=== PATIENT | female | born 1990 | race Caucasian/White ===

== ENCOUNTER → 2017-02-18 | Outpatient (CLI) | payer MEDICAID | END | disposition home or self-care (01) | LOC: MW.CHOBGYN 11:19 | PROVIDERS: ATTEND Obstetrics & Gynecology | DX: Z34.90 Encounter for supervision of normal pregnancy, unspecified, unspecified trimester (principal) | CPT/HCPCS: 36415; 81003; 82950; 85027 ==

== ENCOUNTER 2017-04-25 07:35 | Inpatient (IN) | payer MEDICAID ==
[~2017-04-25 07:35] MED LIST: Lactated Ringers 1,000 ML IV SCH; Sodium Chloride 0.9% 10 ML Syringe FLUSH PRN; Sodium Chloride 0.9% 2.5 ML Syringe FLUSH PRN
[2017-04-25] MEDS: Lactated Ringers 1,000 ML IV SCH ×3 (08:30→10:23)
[2017-04-25] MEDS ORDERED: ceFAZolin 2 GM in Premix Bag 1 BAG IV ONE (08:41)
[2017-04-25] MEDS ORDERED: Sodium Chloride 0.9% 2.5 ML Syringe FLUSH PRN (08:41)
[2017-04-25] MEDS ORDERED: Sodium Chloride 0.9% 10 ML Syringe FLUSH PRN (08:41)
[2017-04-25] MEDS ORDERED: Citric Acid/Sodium Citrate Solution 30 ML Cup PO SCH (08:45)
--- NOTE | 2017-04-25 08:53 | PCM.LDHP ---
L&D History of Present Illness - General Date of Service: 04/25/17 Admit Problem/Dx: Patient Status Order with Admit Dx/Problem 04/25/17 08:41 Patient Status [ADT] Routine Admission Diagnosis/Problem Admission Diagnosis/Problem Source of Information: Patient History Limitations: Reports: No Limitations - History of Present Illness Improves with: Reports: None Worsens with: Reports: None Associated Symptoms: Reports: N - Related Data Allergies/Adverse Reactions: Allergies Allergy/AdvReac Type Severity Reaction Status Date / Time No Known Allergies Allergy Verified 07/18/15 15:48 Home Medications: Home Meds . [No Known Home Meds] 04/22/17 [History] Past Medical History Other Cardiovascular History: History of Tachycardia and high blood pressure in other "none in this ", treated by Dr. 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 - Past Surgical History Head Surgeries/Procedures: Reports: None Female Surgical History: Reports: Section Other Female Surgeries/Procedures: laparotomy with ovarian cyst removal and partial oophorectomy Social & Family History - Family History Family Medical History: Noncontributory - Tobacco Use Smoking Status *Q: Current Every Day Smoker Years of Tobacco use: 8 Packs/Tins Daily: 0.5 Second Hand Smoke Exposure: Yes - Alcohol Use Days Per Week of Alcohol Use: 0 - Recreational Drug Use Recreational Drug Use: No Drug Use in Last 12 Months: No H&P Review of Systems - Review of Systems: Review Of Systems: See Below General: Reports: No Symptoms HEENT: Reports: No Symptoms Pulmonary: Reports: No Symptoms Cardiovascular: Reports: No Symptoms Gastrointestinal: Reports: No Symptoms Genitourinary: Reports: No Symptoms Musculoskeletal: Reports: No Symptoms Skin: Reports: No Symptoms Psychiatric: Reports: No Symptoms Neurological: Reports: No Symptoms Hematologic/Lymphatic: Reports: No Symptoms Immunologic: Reports: No Symptoms L&D Exam - Exam Exam: See Below - Vital Signs Weight: 78.471 kg - OB Specific Fundal Height In cm: 37 Contraction Intensity: Mild Movement: Active Heart Tones: Present Presentation: Vertex - Angulo Score Angulo Score Cervix Position: Posterior Angulo Score Consistency: Firm Angulo Score Effacement: 0-30% Angulo Score Dilation: Closed Angulo Score Infant's Station: -3 Angulo Score Total: 0 Problem List Initiated/Reviewed/Updated: Yes Orders Last 24hrs: Active Orders 24 hr Category Date Time Status Patient Status [ADT] Routine ADT 04/25/17 08:41 Active Non Stress Test [RC] PER UNIT ROUTINE Care 04/25/17 08:41 Active Notify Provider Vital Signs [RC] PRN Care 04/25/17 08:43 Active Procedure Site Prep Instruct [RC] ASDIRECTED Care 04/25/17 08:41 Active Up ad Tita [RC] ASDIRECTED Care 04/25/17 08:41 Active Verify Patient Consent Obtain [RC] ASDIRECTED Care 04/25/17 07:12 Active Verify Patient Consent Obtain [RC] ASDIRECTED Care 04/25/17 08:41 Active Vital Signs [RC] PER UNIT ROUTINE Care 04/25/17 08:41 Active CBC W/O DIFF,HEMOGRAM [HEME] Routine Lab 04/25/17 08:41 Ordered TYPE AND SCREEN [BBK] Routine Lab 04/25/17 08:41 Ordered Citric Acid/Sodium Citrate [Bicitra Solution] Med 04/25/17 08:45 Active 30 ml PO .ONCE Lactated Ringers [Ringers, Lactated] 1,000 ml Med 04/25/17 08:45 Active IV .BOLUS Lactated Ringers [Ringers, Lactated] 1,000 ml Med 04/25/17 07:15 Active IV ASDIRECTED Sodium Chloride 0.9% [Saline Flush] Med 04/25/17 07:12 Active 10 ml FLUSH ASDIRECTED PRN Sodium Chloride 0.9% [Saline Flush] Med 04/25/17 08:41 Active 10 ml FLUSH ASDIRECTED PRN Sodium Chloride 0.9% [Saline Flush] Med 04/25/17 07:12 Active 2.5 ml FLUSH ASDIRECTED PRN Sodium Chloride 0.9% [Saline Flush] Med 04/25/17 08:41 Active 2.5 ml FLUSH ASDIRECTED PRN ceFAZolin [Ancef] 2 gm Med 04/25/17 08:41 Active Premix Bag 1 bag IV ONETIME Medication Administration Instruction [OM.PC] Routine Oth 04/25/17 07:12 Ordered Peripheral IV Insertion Adult [OM.PC] Routine Oth 04/25/17 07:12 Ordered Peripheral IV Insertion Adult [OM.PC] Routine Oth 04/25/17 08:41 Ordered Schedule Procedure [COMM] Per Unit Routine Oth 04/25/17 08:41 Ordered Resuscitation Status Routine Resus Stat 04/25/17 08:41 Ordered Medication Orders Citric Acid/Sodium Citrate (Bicitra Solution) 30 ml PO .ONCE STEF Lactated Ringer's (Ringers, Lactated) 1,000 mls @ 125 mls/hr IV ASDIRECTED STEF Lactated Ringer's (Ringers, Lactated) 1,000 mls @ 500 mls/hr IV .BOLUS STEF Cefazolin Sodium/Dextrose 2 gm (/ Premix) 50 mls @ 100 mls/hr IV ONETIME ONE Stop: 04/25/17 09:10 Sodium Chloride (Saline Flush) 10 ml FLUSH ASDIRECTED PRN PRN Reason: Keep Vein Open Sodium Chloride (Saline Flush) 2.5 ml FLUSH ASDIRECTED PRN PRN Reason: Keep Vein Open Sodium Chloride (Saline Flush) 10 ml FLUSH ASDIRECTED PRN PRN Reason: Keep Vein Open Sodium Chloride (Saline Flush) 2.5 ml FLUSH ASDIRECTED PRN PRN Reason: Keep Vein Open Assessment/Plan Comment:: Term . She is para [id number] she is admitted for elective repeat section the patient desire permanent sterilization she consented for bilateral tubal ligation at the time of the section and she is up by [facility] committee.
[2017-04-25] MEDS ORDERED: Oxytocin 10 Units/1 ML SDV ONE (09:35)
[2017-04-25] MEDS ORDERED: ceFAZolin 1 GM Vial ONE (09:35)
[2017-04-25] MEDS ORDERED: Ondansetron 4 MG/2 ML SDV ONE (09:35)
[2017-04-25] MEDS ORDERED: ePHEDrine 50 MG/ML SDV ONE (09:35)
[2017-04-25] MEDS ORDERED: Sodium Chloride 0.9% 20 ML ONE (09:35)
[2017-04-25] MEDS ORDERED: Morphine PF 10 MG/10 ML SDV ONE (09:36)
[2017-04-25] MEDS ORDERED: Water For Injection, Sterile 20 ML ONE (09:38)
[2017-04-25] MEDS ORDERED: Octyl 2-Cyanoacrylate 1 Tube ONE ×2 (09:53→11:23)
--- NOTE | 2017-04-25 09:56 | PCM.PREANE ---
Preanesthetic Assessment - Anesthesia/Transfusion/Family Hx Anesthesia History: Prior Anesthesia Without Reaction Other Type of Anesthesia Reaction Comment: Last "got sick during", Denies any known family problems Transfusion History: No Prior Transfusion(s) Intubation History: Unknown - Review of Systems General: No Symptoms Pulmonary: No Symptoms (smoker) Cardiovascular: No Symptoms Gastrointestinal: Other (GERD) Neurological: No Symptoms Other: Reports: None - Physical Assessment NPO Status Date: 04/24/17 NPO Status Time: 23:00 Height: 5 ft 5 in Weight: 173 lb ASA Class: 2 Mental Status: Alert & Oriented x3 Airway Class: Mallampati = 1 Dentition: Reports: Normal Dentition Thyro-Mental Finger Breadths: 3 Mouth Opening Finger Breadths: 3 ROM/Head Extension: Full Lungs: Clear to auscultation, Normal respiratory effort Cardiovascular: Regular Rate, Regular Rhythm, No Murmurs - Lab Values: Laboratory Last Values WBC 9.58 K/uL (4.0-11.0) 04/25/17 08:53 RBC 3.78 M/uL (4.30-5.90) L 04/25/17 08:53 Hgb 10.6 g/dL (12.0-16.0) L 04/25/17 08:53 Hct 32.6 % (36.0-46.0) L 04/25/17 08:53 MCV 86.2 fL (80.0-98.0) 04/25/17 08:53 MCH 28.0 pg (27.0-32.0) 04/25/17 08:53 MCHC 32.5 g/dL (31.0-37.0) 04/25/17 08:53 RDW Std Deviation 43.3 fl (28.0-62.0) 04/25/17 08:53 RDW Coeff of Carlos 14 % (11.0-15.0) 04/25/17 08:53 Plt Count 278 K/uL (150-400) 04/25/17 08:53 MPV 10.20 fL (7.40-12.00) 04/25/17 08:53 Nucleated RBC % 0.2 /100WBC 04/25/17 08:53 Nucleated RBCs # 0 K/uL 04/25/17 08:53 - Allergies Allergies/Adverse Reactions: Allergies Allergy/AdvReac Type Severity Reaction Status Date / Time No Known Allergies Allergy Verified 07/18/15 15:48 - Blood Blood Available: Yes Product(s) Available: PRBC (T and S) - Anesthesia Plan Pre-Op Medication Ordered: Antacids - Acknowledgements Anesthesia Type Planned: Spinal Pt an Appropriate Candidate for the Planned Anesthesia: Yes Alternatives and Risks of Anesthesia Discussed w Pt/Guardian: Yes Pt/Guardian Understands and Agrees with Anesthesia Plan: Yes Additional Comments: at bedside with interview and exam. He plans to be in the OR for the delivery. PreAnesthesia Questionnaire Other Cardiovascular History: History of Tachycardia and high blood pressure in other "none in this ", treated by Dr. 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 [No Known Home Meds] 04/22/17 [History] - CURRENT (IN HOUSE) MEDS Current Meds: Current Medications Citric Acid/Sodium Citrate (Bicitra Solution) 30 ml PO .ONCE STEF Last Admin: 04/25/17 09:20 Dose: 30 ml Lactated Ringer's (Ringers, Lactated) 1,000 mls @ 125 mls/hr IV ASDIRECTED STEF Lactated Ringer's (Ringers, Lactated) 1,000 mls @ 500 mls/hr IV .BOLUS STEF Last Admin: 04/25/17 09:21 Dose: 500 mls/hr Sodium Chloride (Saline Flush) 10 ml FLUSH ASDIRECTED PRN PRN Reason: Keep Vein Open Sodium Chloride (Saline Flush) 2.5 ml FLUSH ASDIRECTED PRN PRN Reason: Keep Vein Open Sodium Chloride (Saline Flush) 10 ml FLUSH ASDIRECTED PRN PRN Reason: Keep Vein Open Sodium Chloride (Saline Flush) 2.5 ml FLUSH ASDIRECTED PRN PRN Reason: Keep Vein Open Discontinued Medications Cefazolin Sodium (Ancef) Confirm Administered Dose 2 gm .ROUTE .STK-MED ONE Stop: 04/25/17 09:36 Ephedrine Sulfate (Ephedrine Sulfate) Confirm Administered Dose 50 mg .ROUTE .STK-MED ONE Stop: 04/25/17 09:36 Cefazolin Sodium/Dextrose 2 gm (/ Premix) 50 mls @ 100 mls/hr IV ONETIME ONE Stop: 04/25/17 09:10 Sodium Chloride (Normal Saline) Confirm Administered Dose 20 mls @ as directed .ROUTE .STK-MED ONE Stop: 04/25/17 09:36 Sterile Water (Sterile Water For Injection) Confirm Administered Dose 20 mls @ as directed .ROUTE .STK-MED ONE Stop: 04/25/17 09:39 Morphine Sulfate (Duramorph Pf) Confirm Administered Dose 10 mg .ROUTE .STK-MED ONE Stop: 04/25/17 09:37 Ondansetron HCl (Zofran) Confirm Administered Dose 4 mg .ROUTE .STK-MED ONE Stop: 04/25/17 09:36 Oxytocin (Pitocin) Confirm Administered Dose 20 unit .ROUTE .STK-MED ONE Stop: 04/25/17 09:36
[2017-04-25] MEDS ORDERED: Phenylephrine/Normal Saline 100 MCG/ML 10 ML Syringe ONE (10:54)
[2017-04-25] MEDS ORDERED: fentaNYL 100 MCG/2 ML SDV ONE (11:09)
--- NOTE | 2017-04-25 11:25 | PCM.OPNOTE ---
- General Post-Op/Procedure Note Date of Surgery/Procedure: 04/25/17 Operative Procedure(s): Repeat C/ Section, Bilat tubal ligation. Pre Op Diagnosis: Term , Sterlization. Post-Op Diagnosis: Same Primary Surgeon: Jun Mckay Lay Up Operator: Keshia Barrera EBL in mLs: 700 Complications: None Condition: Good
[2017-04-25] MEDS ORDERED: diphenhydrAMINE 50 MG/ML SDV IVPUSH PRN ×2 (11:26→16:32)
[2017-04-25] MEDS ORDERED: Bisacodyl 10 MG Supp RECTAL PRN (11:26)
[2017-04-25] MEDS ORDERED: Acetaminophen/oxyCODONE 325-5 MG Tab PO PRN (11:26)
[2017-04-25] MEDS ORDERED: Ibuprofen 800 MG Tab PO PRN (11:26)
[2017-04-25] MEDS ORDERED: Ondansetron 4 MG/2 ML SDV IV PRN (11:26)
[2017-04-25] MEDS ORDERED: Lanolin 100% Cream 7 GM Tube TOP PRN (11:26)
[2017-04-25] MEDS ORDERED: Lactated Ringers 1,000 ML IV SCH (11:30)
[2017-04-25] MEDS: Ketorolac 30 MG/ML SDV IVPUSH SCH ×3 (12:03→23:31)
[2017-04-25] MEDS ORDERED: Nalbuphine 10 MG/1 ML Vial IVPUSH ONE (14:41)
[2017-04-25] MEDS ORDERED: Naloxone 0.4 MG/ML Syringe IVPUSH PRN (16:32)
[2017-04-25] MEDS ORDERED: Nalbuphine 10 MG/1 ML Vial IVPUSH PRN (16:32)
--- NOTE | 2017-04-25 17:00 | OR ---
SURGEON: Jun Mckay MD DATE OF PROCEDURE: 04/25/2017 PREOPERATIVE DIAGNOSES: Term , previous section x3, admitted for elective section, desire permanent sterilization. POSTOPERATIVE DIAGNOSES: Term , previous section x3, admitted for elective section, desire permanent sterilization. OPERATION PERFORMED: Repeat low transverse section and Chrissy tubal ligation. PRIVATE DUTY RN: Keshia Barrera CNM ANESTHESIA: Spinal, Duran Ramirez and Dr. Clarke. ESTIMATED BLOOD LOSS: 700 mL. COMPLICATIONS: None. FINDINGS: Female fetus. score reported to be 8 and 9. Weight is not available. Normal uterus, tubes, and ovaries. INDICATION FOR SURGERY: This patient is 27. She had three previous sections. She is admitted for elective repeat section. She desired permanent sterilization. She was approved by the ethic committee for sterilization. PROCEDURE IN DETAIL: The patient was brought to the OR, properly identified, and after adequate level of spinal anesthesia, with a Garcia catheter in the bladder, the patient was prepped and draped in sterile fashion as usual. Low transverse Pfannenstiel skin incision was done. The Lc's fascia, rectus fascia was opened in the direction of the incision. The 2 recti muscles and peritoneal cavity was entered. The bladder flap was raised in the usual manner pushing the bladder away from the lower uterine segment. Low transverse uterine incision was done and extended manually with the hand. Fetus was in a vertex position. Delivered this way without any problem. Fetus cried immediately. score reported to be 8 and 9. The placenta delivered spontaneous, complete, and intact and then repair of the lower uterine segment done with 2-0 Vicryl continuous interlocking in 2 layers. Reperitonealization done with 2-0 Vicryl continuous. Attention was paid to the tube at this time and 2 to 3 cm segment of each tube tied in knuckle using chromic catgut, transected, and sent for histopathology. Thus, achieving bilateral tubal ligation. Once these are done and the peritoneal cavity evacuated from all blood and blood clot and closed with 3-0 Vicryl continuous. The rectus fascia was closed with #1 PDS double strand continuous and the Lc's fascia was closed with 3-0 Vicryl continuous and the skin closed in subcuticular fashion with 5-0 monofilament and Dermabond. Instrument and sponge count was correct. The patient tolerated the procedure well, went to recovery room in stable general condition. JAKY / SILVINO /[id number]
--- NOTE | 2017-04-25 19:30 | PCM.POSTAN ---
POST ANESTHESIA ASSESSMENT - MENTAL STATUS Mental Status: alert, oriented - RESPIRATORY Respiratory Status: respiratory rate WNL, airway patent, O2 saturation stable - CARDIOVASCULAR CV Status: pulse rate WNL, blood pressure stable - GASTROINTESTINAL GI Status: no symptoms - POST OP HYDRATION Hydration Status: adequate & stable
[2017-04-25] MEDS: Docusate Sodium 100 MG Cap PO SCH (21:26)
[2017-04-26] MEDS: Ketorolac 30 MG/ML SDV IVPUSH SCH ×2 (05:16→11:38)
--- NOTE | 2017-04-26 08:17 | PCM48HPAN ---
Post Anesthesia Note - EVALUATION WITHIN 48HRS OF ANESTHETIC Vital Signs in Normal Range: Yes Patient Participated in Evaluation: Yes Respiratory Function Stable: Yes Airway Patent: Yes Cardiovascular Function Stable: Yes Hydration Status Stable: Yes Pain Control Satisfactory: Yes Nausea and Vomiting Control Satisfactory: Yes Mental Status Recovered: Yes - COMMENTS/OBSERVATIONS Free Text/Narrative:: Garcia was pulled out on accident only 4 hours post spinal. Pt has been able to void some.
[2017-04-26] MEDS: Acetaminophen/oxyCODONE 325-5 MG Tab PO PRN ×2 (08:28→14:29)
[2017-04-26] MEDS: Docusate Sodium 100 MG Cap PO SCH (09:04)
--- NOTE | 2017-04-26 10:22 | PCM.DCSUM1 ---
Discharge Summary - Hospital Course Free Text/Narrative:: Discharge home with infant. Follow up in 10 days for incision check and 6 weeks for post exam. - Discharge Data Discharge Date: 04/26/17 Discharge Disposition: Home, Self-Care 01 Condition: Good - Patient Summary/Data Operative Procedure(s) Performed: Repeat C/ Section, Bilat tubal ligation. - Patient Instructions Diet: Usual Diet as Tolerated Activity: As Tolerated, No Lifting Over 10 Pounds, Rest and Relax Today Driving: Do Not Drive Showering/Bathing: May Shower Notify Provider of: Fever, Increased Pain, Swelling and Redness, Drainage, Nausea and/or Vomiting Other/Special Instructions: Discharge home with infant. Follow up in 10 days for incision check and 6 weeks for post exam. - Discharge Plan Home Medications: Home Meds . [No Known Home Meds] 04/22/17 [History] Referrals: [facility] [Outside] Keshia Barrera CNM [Mid-] - (1 week- May 02 @ 9:30am w/ Keshia Barrera 6 week- June 06 @ 9:30am w/ Keshia Barrera ) - General Info Date of Service: 04/26/17 Admission Dx/Problem (Free Text: Patient Status Order with Admit Dx/Problem 04/25/17 08:41 Patient Status [ADT] Routine Admission Diagnosis/Problem Admission Diagnosis/Problem Functional Status: Reports: pain controlled, tolerating diet, ambulating, urinating - Review of Systems General: Reports: No Symptoms HEENT: Reports: no symptoms Pulmonary: Reports: no symptoms Cardiovascular: Reports: No Symptoms Gastrointestinal: Reports: No symptoms Genitourinary: Reports: no symptoms Musculoskeletal: Reports: no symptoms Skin: Reports: no symptoms Neurological: Reports: No Symptoms Psychiatric: Reports: no symptoms - Patient Data Vitals - Most Recent: Last Vital Signs Temp 36.6 C 04/26/17 08:00 Pulse 96 04/26/17 10:00 Resp 16 04/26/17 10:00 BP 118/73 04/26/17 08:00 Pulse Ox 96 04/26/17 10:00 Weight - Most Recent: 78.471 kg I&O - Last 24 hours: Intake & Output 04/25/17 04/26/17 04/26/17 22:59 06:59 14:59 Intake Total 1300 1500 Output Total 179 Balance 1300 1321 Lab Results - Last 24 hrs: Laboratory Results - last 24 hr 04/26/17 Range/Units 05:46 Hgb 9.6 L (12.0-16.0) g/dL Hct 29.6 L (36.0-46.0) % Med Orders - Current: Current Medications Bisacodyl (Dulcolax) 10 mg RECTAL .ONCE PRN PRN Reason: Constipation Citric Acid/Sodium Citrate (Bicitra Solution) 30 ml PO .ONCE STEF Last Admin: 04/25/17 09:20 Dose: 30 ml Diphenhydramine HCl (Benadryl) 25 mg IVPUSH Q6H PRN PRN Reason: Itching or Nausea Diphenhydramine HCl (Benadryl) 25 mg IVPUSH Q4H PRN PRN Reason: Itching Stop: 04/26/17 16:32 Docusate Sodium (Colace) 100 mg PO BID [facility] Last Admin: 04/26/17 09:04 Dose: 100 mg Emollient Ointment (Lansinoh Hpa) 0 gm TOP ASDIRECTED PRN PRN Reason: Sore Nipples Lactated Ringer's (Ringers, Lactated) 1,000 mls @ 125 mls/hr IV ASDIRECTED [facility] Last Admin: 04/25/17 12:25 Dose: 125 mls/hr Lactated Ringer's (Ringers, Lactated) 1,000 mls @ 500 mls/hr IV .BOLUS [facility] Last Admin: 04/25/17 10:23 Dose: 500 mls/hr Lactated Ringer's (Ringers, Lactated) 1,000 mls @ 125 mls/hr IV ASDIRECTED [facility] Ibuprofen (Motrin) 800 mg PO Q8H PRN PRN Reason: mild pain or fever Ketorolac Tromethamine (Toradol) 30 mg IVPUSH Q6H [facility] Stop: 04/26/17 11:31 Last Admin: 04/26/17 05:16 Dose: 30 mg Nalbuphine HCl (Nubain) 5 mg IVPUSH Q3H PRN PRN Reason: Pruritis Stop: 04/26/17 16:32 Naloxone HCl (Narcan) 0.1 mg IVPUSH ONETIME PRN PRN Reason: Resp. Depression Stop: 04/26/17 16:32 Ondansetron HCl (Zofran) 4 mg IV Q4H PRN PRN Reason: Nausea/Vomiting Oxycodone/Acetaminophen (Percocet 325-5 Mg) 1 tab PO Q4H PRN PRN Reason: Pain (moderate 4-6) Last Admin: 04/26/17 08:28 Dose: 1 tab Oxycodone/Acetaminophen (Percocet 325-5 Mg) 2 tab PO Q4H PRN PRN Reason: Pain (moderate 4-6) Sodium Chloride (Saline Flush) 10 ml FLUSH ASDIRECTED PRN PRN Reason: Keep Vein Open Sodium Chloride (Saline Flush) 2.5 ml FLUSH ASDIRECTED PRN PRN Reason: Keep Vein Open Sodium Chloride (Saline Flush) 10 ml FLUSH ASDIRECTED PRN PRN Reason: Keep Vein Open Sodium Chloride (Saline Flush) 2.5 ml FLUSH ASDIRECTED PRN PRN Reason: Keep Vein Open Discontinued Medications Cefazolin Sodium (Ancef) Confirm Administered Dose 2 gm .ROUTE .STK-MED ONE Stop: 04/25/17 09:36 Ephedrine Sulfate (Ephedrine Sulfate) Confirm Administered Dose 50 mg .ROUTE .STK-MED ONE Stop: 04/25/17 09:36 Fentanyl (Sublimaze) Confirm Administered Dose 100 mcg .ROUTE .STK-MED ONE Stop: 04/25/17 11:10 Cefazolin Sodium/Dextrose 2 gm (/ Premix) 50 mls @ 100 mls/hr IV ONETIME ONE Stop: 04/25/17 09:10 Last Admin: 04/25/17 15:17 Dose: Not Given Sodium Chloride (Normal Saline) Confirm Administered Dose 20 mls @ as directed .ROUTE .STK-MED ONE Stop: 04/25/17 09:36 Sterile Water (Sterile Water For Injection) Confirm Administered Dose 20 mls @ as directed .ROUTE .STK-MED ONE Stop: 04/25/17 09:39 Morphine Sulfate (Duramorph Pf) Confirm Administered Dose 10 mg .ROUTE .STK-MED ONE Stop: 04/25/17 09:37 Nalbuphine HCl (Nubain) 5 mg IVPUSH ONETIME ONE Stop: 04/25/17 14:42 Last Admin: 04/25/17 15:12 Dose: 5 mg Octyl Cyanoacrylate (Dermabond Advance) Confirm Administered Dose 1 applic .ROUTE .STK-MED ONE Stop: 04/25/17 09:54 Octyl Cyanoacrylate (Dermabond Advance) Confirm Administered Dose 1 applic .ROUTE .STK-MED ONE Stop: 04/25/17 11:24 Ondansetron HCl (Zofran) Confirm Administered Dose 4 mg .ROUTE .STK-MED ONE Stop: 04/25/17 09:36 Oxytocin (Pitocin) Confirm Administered Dose 20 unit .ROUTE .STK-MED ONE Stop: 04/25/17 09:36 Phenylephrine HCl (Phenylephrine In Ns 100 Mcg/Ml) Confirm Administered Dose 1 mg .ROUTE .STK-MED ONE Stop: 04/25/17 10:55 - Exam General: Reports: alert, oriented, cooperative, no acute distress Lungs: Reports: Normal respiratory effort Abdomen: Reports: soft, tenderness (Female) Exam: Vaginal Bleeding Rectal (Female) Exam: Deferred Back Exam: Reports: Full Range of Motion Extremities: Reports: no edema, no tenderness/swelling, no calf tenderness Skin: Reports: warm, dry, intact Wound/Incisions: Reports: healing well, dressing dry and intact Neurological: Reports: no new focal deficit, normal speech, normal tone Psy/Mental Status: Reports: alert, normal affect, normal mood *Q Meaningful Use (DIS) - VTE *Q VTE Criteria *Q: - Stroke *Q Stroke Criteria *Q: - AMI *Q AMI Criteria *Q:
[2017-04-26 12:20] VITALS: BP 136/63
== END 2017-04-26 14:35 | disposition home or self-care (01) | DRG 766 ==
LOC: MW.OB 07:35
PROVIDERS: ADMIT Obstetrics & Gynecology; ATTEND Obstetrics & Gynecology
PROC: 10D00Z1 Extraction of Products of Conception, Low, Open Approach (ICD-10-PCS; principal; 2017-04-25)
PROC: 0UB70ZZ Excision of Bilateral Fallopian Tubes, Open Approach (ICD-10-PCS; 2017-04-25)
DX: O34.211 Maternal care for low transverse scar from previous cesarean delivery (principal); O99.334 Smoking (tobacco) complicating childbirth; F17.210 Nicotine dependence, cigarettes, uncomplicated; Z3A.36 36 weeks gestation of pregnancy; Z37.0 Single live birth; Z30.2 Encounter for sterilization
CPT/HCPCS: 01961; 36415; 59025; 85014; 85018; 85027; 86850; 86900; 86901; 88304; A9270-GY; J0690; J1885; J2270; J2300; J2405; J2590; J3010; J7120

== ENCOUNTER 2018-01-06 15:40 | Emergency (ER) | payer MEDICAID, OTHER ==
[2018-01-06] MEDS ORDERED: Ibuprofen 600 MG Tab PO ONE (15:53)
--- NOTE | 2018-01-06 17:24 | EDM.PDOC ---
ED HPI GENERAL MEDICAL PROBLEM - General Chief Complaint: Upper Extremity Injury/Pain Stated Complaint: RIGHT SHOULDER PAIN Time Seen by Provider: 01/06/18 15:48 Source of Information: Reports: Patient History Limitations: Reports: No Limitations - History of Present Illness INITIAL COMMENTS - FREE TEXT/NARRATIVE: History of present illness: []Patient had several episodes today where her right shoulder began hurting she was lifting a bucket of salt, swinging a pick ice and shutting a car at first her head was tilted to the right and she was unable to straighten her neck. She did straighten her neck out and felt a pop over her right clavicle with sudden pain. He denies any chest pain or shortness of breath. Patient does complain of tingling along the ulnar nerve distribution she has full range of motion of her upper arm. Review of systems: As per history of present illness and below otherwise all systems reviewed and negative. Past medical history: As per history of present illness and as reviewed below otherwise noncontributory. Surgical history: As per history of present illness and as reviewed below otherwise noncontributory. Social history: No reported history of drug or alcohol abuse. Family history: As per history of present illness and as reviewed below otherwise noncontributory. Physical exam: General: Well developed, well nourished in NAD HEENT: Atraumatic, normocephalic, pupils reactive, negative for conjunctival pallor or scleral icterus, mucous membranes moist, throat clear, neck supple, nontender, trachea midline. Lungs: Clear to auscultation, breath sounds equal bilaterally, chest nontender. Heart: S1S2, regular, negative for clicks, rubs, or JVD. Abdomen: Soft, nondistended, nontender. Negative for masses or hepatosplenomegaly. Negative for costovertebral tenderness. Pelvis: Stable nontender. Genitourinary: Deferred. Rectal: Deferred. Extremities: Atraumatic, tender right shoulder anteriorly and distal clavicle no obvious deformities she is able to move the shoulder in the joint, moves fingers, normal sensation negative for cords or calf pain. Neurovascular unremarkable. Neuro: Awake, alert, oriented. Cranial nerves II through XII unremarkable. Cerebellum unremarkable. Motor and sensory unremarkable throughout. Exam nonfocal. Diagnostics: []X-ray right shoulder negative Therapeutics: []Ibuprofen for pain Impression: []Right shoulder sprain Plan: []Ibuprofen, arm sling, ice follow-up with primary care Definitive disposition and diagnosis as appropriate pending reevaluation and review of above. right shoulder Pain Score (Numeric/FACES): 7 - Related Data Allergies Allergy/AdvReac Type Severity Reaction Status Date / Time No Known Allergies Allergy Verified 01/06/18 15:47 Home Meds: Home Meds . [No Known Home Meds] 04/22/17 [History] Past Medical History HEENT History: Reports: None Cardiovascular History: Reports: Other (See Below) Other Cardiovascular History: History of Tachycardia and high blood pressure in other "none in this ", treated by Dr. 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 History: As above 6 months post delivery first child, had a surgery for ovarian cyst and 'tumor removed' Musculoskeletal History: Reports: Other (See Below) Other Musculoskeletal History: Degenerative Disc disease to back Neurological History: Reports: None Psychiatric History: Reports: None Endocrine/Metabolic History: Reports: None Hematologic History: Reports: None Immunologic History: Reports: None Oncologic (Cancer) History: Reports: None Dermatologic History: Reports: None - Past Surgical History Head Surgeries/Procedures: Reports: None HEENT Surgical History: Reports: None Cardiovascular Surgical History: Reports: None Respiratory Surgical History: Reports: None GI Surgical History: Reports: None Female Surgical History: Reports: Section Other Female Surgeries/Procedures: laparotomy with ovarian cyst removal and partial oophorectomy Endocrine Surgical History: Reports: None Neurological Surgical History: Reports: None Musculoskeletal Surgical History: Reports: None Oncologic Surgical History: Reports: None Dermatological Surgical History: Reports: None Social & Family History - Family History Family Medical History: Noncontributory - Tobacco Use Smoking Status *Q: Current Every Day Smoker Years of Tobacco use: 10 Packs/Tins Daily: 0.5 Used Tobacco, but Quit: No Month/Year Tobacco Last Used: march 2017 Second Hand Smoke Exposure: Yes - Caffeine Use Caffeine Use: Reports: Coffee, Soda - Alcohol Use Days Per Week of Alcohol Use: 0 - Recreational Drug Use Recreational Drug Use: No Drug Use in Last 12 Months: No Review of Systems - Review of Systems Review Of Systems: See Below (See history of present illness) ED EXAM, GENERAL - Physical Exam Exam: See Below (See history of present illness) Course - Vital Signs Last Recorded V/S: Last Vital Signs Temp 98.5 F 01/06/18 15:47 Pulse 85 01/06/18 15:47 Resp 18 01/06/18 15:47 BP 136/88 01/06/18 15:47 Pulse Ox 95 01/06/18 15:47 - Orders/Labs/Meds Orders: Active Orders 24 hr Category Date Time Status Communication Order [RC] STAT Care 01/06/18 16:56 Active Shoulder Comp Rt [CR] Stat Exams 01/06/18 15:54 Taken Meds: Medications Discontinued Medications Generic Name Dose Route Start Last Admin Trade Name Freq PRN Reason Stop Dose Admin Ibuprofen 600 mg 01/06/18 15:53 01/06/18 16:59 Motrin PO 01/06/18 15:54 600 mg ONETIME ONE Administration Departure - Departure Time of Disposition: 17:23 Disposition: Home, Self-Care 01 Condition: Good Clinical Impression: Sprain of shoulder, right Qualifiers: Encounter type: initial encounter Shoulder sprain type: unspecified sprain Qualified Code(s): S43.401A - Unspecified sprain of right shoulder joint, initial encounter - Discharge Information Referrals: Mel Garcia DO [Primary Care Provider] - Forms: ED Department Discharge Additional Instructions: The following information is given to patients seen in the emergency department who are being discharged to home. This information is to outline your options for follow-up care. We provide all patients seen in our emergency department with a follow-up referral. The need for follow-up, as well as the timing and circumstances, are variable depending upon the specifics of your emergency department visit. If you don't have a primary care physician on staff, we will provide you with a referral. We always advise you to contact your personal physician following an emergency department visit to inform them of the circumstance of the visit and for follow-up with them and/or the need for any referrals to a consulting specialist. The emergency department will also refer you to a specialist when appropriate. This referral assures that you have the opportunity for follow-up care with a specialist. All of these measure are taken in an effort to provide you with optimal care, which includes your follow-up. Under all circumstances we always encourage you to contact your private physician who remains a resource for coordinating your care. When calling for follow-up care, please make the office aware that this follow-up is from your recent emergency room visit. If for any reason you are refused follow-up, please contact the [facility] Emergency Department at and asked to speak to the emergency department charge nurse. Madhu Ruiz, follow-up with primary care return if symptoms worsen or change [facility] [address] [place] [id number] - My Orders Last 24 Hours: My Active Orders 01/06/18 15:54 Shoulder Comp Rt [CR] Stat 01/06/18 16:56 Communication Order [RC] STAT - Assessment/Plan Last 24 Hours: My Active Orders 01/06/18 15:54 Shoulder Comp Rt [CR] Stat 01/06/18 16:56 Communication Order [RC] STAT
[2018-01-06 18:09] VITALS: BP 128/68
--- NOTE | 2018-01-07 09:31 | CR ---
EXAM DATE: 01/06/18 PATIENT'S AGE: 27 Patient: MAVERICK TAYLOR Facility: [place], [place] Site . Site : 1990 Study: XRay Shoulder Right [id number]/13/2018 4:29:36 PM Ordering Physician: Andry García Final Report: INDICATION: pain, hurt shoulder pushing a car out of snow TECHNIQUE: Three views of the right shoulder COMPARISON: None FINDINGS: Bones: No fractures or bone lesions. Joint spaces: Unremarkable. Soft tissues: Unremarkable. IMPRESSION: No acute bony abnormality Dictated by Bhavesh Hutchinson MD @ 01/06/2018 5:08:04 PM Dictated by: Bhavesh Hutchinson MD @ 01/06/2018 17:08:11 (Electronic Signature) Report Signed by Proxy. [facility]
== END 2018-01-06 17:40 | disposition home or self-care (01) ==
LOC: MW.ED 15:40
DX: S43.401A Unspecified sprain of right shoulder joint, initial encounter (principal); F17.210 Nicotine dependence, cigarettes, uncomplicated; X50.0XXA Overexertion from strenuous movement or load, initial encounter
CPT/HCPCS: 73030; 99283; A9270

== ENCOUNTER 2018-12-11 13:01 | Emergency (ER) | payer SELFPAY ==
--- NOTE | 2018-12-11 13:29 | EDM.PDOC ---
ED HPI GENERAL MEDICAL PROBLEM - General Chief Complaint: General Stated Complaint: NECK AND BACK PAIN Time Seen by Provider: 12/11/18 13:29 Source of Information: Reports: Patient History Limitations: Reports: No Limitations - History of Present Illness INITIAL COMMENTS - FREE TEXT/NARRATIVE: HISTORY AND PHYSICAL: History of present illness: Patient is a 28-year-old female here with complaint of muscle aches, fever, and headache. She states it started as neck pain x 5 days, progressed to low back pain and headache. She had a fever yesterday of 100.6F. She states she has had pain in her hips and hands as well. She has had a lack of appetite but denies vomiting, diarrhea, abdominal pain, cough, sore throat. Review of systems: As per history of present illness and below otherwise all systems reviewed and negative. Past medical history: As per history of present illness and as reviewed below otherwise noncontributory. Surgical history: As per history of present illness and as reviewed below otherwise noncontributory. Social history: No reported history of drug or alcohol abuse. Family history: As per history of present illness and as reviewed below otherwise noncontributory. Physical exam: General: Patient sitting comfortably in no acute distress and nontoxic appearing HEENT: Atraumatic, normocephalic, pupils reactive, negative for conjunctival pallor or scleral icterus, mucous membranes moist, throat clear, neck supple, nontender, trachea midline. No meningeal signs. Lungs: Clear to auscultation, breath sounds equal bilaterally, chest nontender. Heart: S1S2, regular, negative for clicks, rubs, or overt murmur. Abdomen: Soft, nondistended, nontender. Negative for masses or hepatosplenomegaly. Negative for costovertebral tenderness. Pelvis: Stable nontender. Genitourinary: Deferred. Rectal: Deferred. Extremities: Atraumatic, negative for cords or calf pain. Neurovascular unremarkable. Neuro: Awake, alert, oriented. Cranial nerves II through XII unremarkable. Cerebellum unremarkable. Motor and sensory unremarkable throughout. Exam nonfocal. Notes: Advised patient to follow up in clinic if symptoms persist for further work up including possible rheumatology work up and to return to ED if she develops any new or worsening symptoms. Diagnostics: CBC, CMP, CRP Therapeutics: Declined Prescriptions: None Impression: Myalgias Plan: 1. Alternate tylenol and motrin as needed 2. Follow up with primary care provider 3. Return to ED as needed as discussed Definitive disposition and diagnosis as appropriate pending reevaluation and review of above. Lower Back Pain Score (Numeric/FACES): 4 - Related Data Allergies Allergy/AdvReac Type Severity Reaction Status Date / Time No Known Allergies Allergy Verified 12/11/18 13:14 Home Meds: Home Meds . [No Known Home Meds] 04/22/17 [History] Past Medical History HEENT History: Reports: Other (See Below) Other HEENT History: enlarged salivary gland, "tonsil stones" Cardiovascular History: Reports: Other (See Below) Other Cardiovascular History: History of Tachycardia and high blood pressure in other "none in this ", treated by Dr. 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: As above 6 months post delivery first child, had a surgery for ovarian cyst and 'tumor removed' Musculoskeletal History: Reports: Other (See Below) Other Musculoskeletal History: Degenerative Disc disease to back Neurological History: Reports: None Psychiatric History: Reports: None Endocrine/Metabolic History: Reports: None Hematologic History: Reports: None Immunologic History: Reports: None Oncologic (Cancer) History: Reports: None Dermatologic History: Reports: None - Past Surgical History Head Surgeries/Procedures: Reports: None HEENT Surgical History: Reports: None Cardiovascular Surgical History: Reports: None Respiratory Surgical History: Reports: None GI Surgical History: Reports: None Female Surgical History: Reports: Section Other Female Surgeries/Procedures: laparotomy with ovarian cyst removal and partial oophorectomy; benign ovarian tumor Endocrine Surgical History: Reports: None Neurological Surgical History: Reports: None Musculoskeletal Surgical History: Reports: None Oncologic Surgical History: Reports: None Dermatological Surgical History: Reports: None Social & Family History - Family History Family Medical History: Noncontributory - Tobacco Use Smoking Status *Q: Current Every Day Smoker Years of Tobacco use: 5 Packs/Tins Daily: 0.5 - Caffeine Use Caffeine Use: Reports: Coffee, Energy Drinks, Soda - Recreational Drug Use Recreational Drug Use: No ED ROS GENERAL - Review of Systems Review Of Systems: ROS reveals no pertinent complaints other than HPI. ED EXAM, GENERAL - Physical Exam Exam: See Below (see dictation) Course - Vital Signs Last Recorded V/S: Last Vital Signs Temp 97.1 F 12/11/18 13:10 Pulse 94 12/11/18 13:10 Resp 18 12/11/18 13:10 BP 149/92 H 12/11/18 13:10 Pulse Ox 99 12/11/18 13:10 - Orders/Labs/Meds Orders: Active Orders 24 hr Category Date Time Status CULTURE STREP A CONFIRMATION [RM] Stat Lab 12/11/18 13:20 Results STREP SCRN A RAPID W CULT CONF [RM] Stat Lab 12/11/18 13:20 Results Labs: Laboratory Tests 12/11/18 12/11/18 Range/Units 14:05 14:05 WBC 3.23 L (4.0-11.0) K/uL RBC 4.57 (4.30-5.90) M/uL Hgb 13.4 (12.0-16.0) g/dL Hct 39.0 (36.0-46.0) % MCV 85.3 (80.0-98.0) fL MCH 29.3 (27.0-32.0) pg MCHC 34.4 (31.0-37.0) g/dL RDW Std Deviation 40.9 (28.0-62.0) fl RDW Coeff of Carlos 13 (11.0-15.0) % Plt Count 194 (150-400) K/uL MPV 9.80 (7.40-12.00) fL Neut % (Auto) 55.1 (48.0-80.0) % Lymph % (Auto) 34.1 (16.0-40.0) % [place] % (Auto) 9.3 (0.0-15.0) % Eos % (Auto) 1.2 (0.0-7.0) % Baso % (Auto) 0.3 (0.0-1.5) % Neut # (Auto) 1.8 (1.4-5.7) K/uL Lymph # (Auto) 1.1 (0.6-2.4) K/uL [place] # (Auto) 0.3 (0.0-0.8) K/uL Eos # (Auto) 0.0 (0.0-0.7) K/uL Baso # (Auto) 0.0 (0.0-0.1) K/uL Nucleated RBC % 0.0 /100WBC Nucleated RBCs # 0 K/uL Sodium 136 (136-145) mmol/L Potassium 3.4 L (3.5-5.1) mmol/L Chloride 103 (98-107) mmol/L Carbon Dioxide 24.8 (21.0-32.0) mmol/L BUN 7 (7.0-18.0) mg/dL Creatinine 0.6 (0.6-1.0) mg/dL Est Cr Clr Drug Dosing 125.61 mL/min Estimated GFR (MDRD) > 60.0 ml/min Glucose 93 (74-106) mg/dL Calcium 8.9 (8.5-10.1) mg/dL Total Bilirubin 0.3 (0.2-1.0) mg/dL AST 12 L (15-37) IU/L ALT 19 (14-63) IU/L Alkaline Phosphatase 49 (46-116) U/L C-Reactive Protein 9.60 H (0.00-0.90) mg/dL Total Protein 7.2 (6.4-8.2) g/dL Albumin 3.6 (3.4-5.0) g/dL Globulin 3.6 (2.6-4.0) g/dL Albumin/Globulin Ratio 1.0 (0.9-1.6) Departure - Departure Time of Disposition: 14:59 Disposition: Home, Self-Care 01 Condition: Good Clinical Impression: Myalgia - Discharge Information Referrals: PCP,Unknown [Primary Care Provider] - Forms: ED Department Discharge Additional Instructions: The following information is given to patients seen in the emergency department who are being discharged to home. This information is to outline your options for follow-up care. We provide all patients seen in our emergency department with a follow-up referral. The need for follow-up, as well as the timing and circumstances, are variable depending upon the specifics of your emergency department visit. If you don't have a primary care physician on staff, we will provide you with a referral. We always advise you to contact your personal physician following an emergency department visit to inform them of the circumstance of the visit and for follow-up with them and/or the need for any referrals to a consulting specialist. The emergency department will also refer you to a specialist when appropriate. This referral assures that you have the opportunity for follow-up care with a specialist. All of these measure are taken in an effort to provide you with optimal care, which includes your follow-up. Under all circumstances we always encourage you to contact your private physician who remains a resource for coordinating your care. When calling for follow-up care, please make the office aware that this follow-up is from your recent emergency room visit. If for any reason you are refused follow-up, please contact the [facility] Emergency Department at and asked to speak to the emergency department charge nurse. [facility] [address] [place] [id number] [facility] [address] [place] [phone] 1. Alternate tylenol and motrin as needed 2. Follow up with primary care provider 3. Return to ED as needed as discussed - My Orders Last 24 Hours: My Active Orders 12/11/18 13:20 CULTURE STREP A CONFIRMATION [RM] Stat STREP SCRN A RAPID W CULT CONF [RM] Stat - Assessment/Plan Last 24 Hours: My Active Orders 12/11/18 13:20 CULTURE STREP A CONFIRMATION [RM] Stat STREP SCRN A RAPID W CULT CONF [RM] Stat
[2018-12-11 14:40] LABS: CHLORIDE,CL 103 mmol/L (98-107); SODIUM,NA 136 mmol/L (136-145)
[2018-12-11 15:16] VITALS: BP 142/89
== END 2018-12-11 15:16 | disposition home or self-care (01) ==
LOC: MW.ED 13:01
DX: M79.10 Myalgia, unspecified site (principal); F17.210 Nicotine dependence, cigarettes, uncomplicated
CPT/HCPCS: 36415; 80053; 85025; 86140; 87081; 87804; 87880-QW; 99283

== ENCOUNTER 2019-03-21 10:01 | Emergency (ER) | payer SELFPAY ==
[2019-03-21] MEDS ORDERED: Sodium Chloride 0.9% 1,000 ML IV ONE (10:06)
[2019-03-21] MEDS ORDERED: methylPREDNISolone Sodium Succinate 125 MG/2 ML SDV IVPUSH ONE (10:06)
--- NOTE | 2019-03-21 10:25 | EDM.PDOC ---
ED HPI GENERAL MEDICAL PROBLEM - General Chief Complaint: Chest Pain Stated Complaint: CGEST PAIN Time Seen by Provider: 03/21/19 10:01 Source of Information: Reports: Patient History Limitations: Reports: Intoxication - History of Present Illness INITIAL COMMENTS - FREE TEXT/NARRATIVE: HISTORY AND PHYSICAL: History of present illness: Patient is a 28-year-old female who presents to the emergency room with complaints of pleuritic chest pain. She states that she has pain with inspiration, deep breathing or coughing over the past 24 hours. Patient reports that she was seen in the emergency room November 2018 for generalized body aches and fatigue. At that time she was told that she had an elevated CRP. Since that time she continues to have intermittent "flares of inflammation". She describes these "flares" as muscular and/or joint pain that last several days and then resolve on their own. She did follow up with Dr. Garcia recently who has done multiple tests for autoimmune diseases. She has not yet got these results back. She believes that today's symptoms are related to her "inflammation". Patient denies any fever, chills, headache, change in vision, syncope or near syncope. Denies any back pain, shortness of breath or cough. Denies any abdominal pain, nausea, vomiting, diarrhea, constipation or dysuria. Has not noted any blood in urine or stool. Patient has been eating and drinking appropriately. Denies any chance of . Review of systems: As per history of present illness and below otherwise all systems reviewed and negative. Past medical history: As per history of present illness and as reviewed below otherwise noncontributory. Surgical history: As per history of present illness and as reviewed below otherwise noncontributory. Social history: See social history for further information Family history: As per history of present illness and as reviewed below otherwise noncontributory. Physical exam: General: Well-developed and well-nourished 28-year-old female. Alert and oriented. Nontoxic-appearing and in no acute distress. HEENT: Atraumatic, normocephalic, pupils equal and reactive bilaterally, negative for conjunctival pallor or scleral icterus, mucous membranes moist, trachea midline. No drooling or trismus noted. No meningeal signs. No hot potato voice noted. Lungs: Clear to auscultation, breath sounds equal bilaterally, chest nontender. Heart: S1S2, regular rate and rhythm without overt murmur Abdomen: Soft, nondistended, nontender. Negative for masses. Skin: Intact, warm, dry. No lesions or rashes noted. Extremities: Atraumatic, moves all extremities per self without difficulty or deficits, negative for cords or calf pain. Neurovascular unremarkable. Neuro: Awake, alert, oriented. Cranial nerves II through XII unremarkable. Cerebellum unremarkable. Motor and sensory unremarkable throughout. Exam nonfocal. Notes: Patient did feel improvement after IV fluid and medications. Vital signs are stable and have been reviewed by me. Lab work is unremarkable. Chest x-ray shows no acute findings. Patient denies any concerns of wanting further evaluation as she states that she has been seeing Dr. Garcia for evaluation of the elevated CRP (testing for autoimmune diseases). She states she is to see her in the next week for reevaluation and testing results. We'll give her prescription for Medrol Dosepak and diclofenac for symptomatic care. Supportive care measures were reviewed and discussed. Voices understanding and is agreeable to plan of care. Denies any further questions or concerns at this time. Diagnostics: CBC, CMP, chest x-ray, EKG Therapeutics: IV fluid, Solu-Medrol, Toradol Prescription: Medrol Dosepak Diclofenac Impression: Pleuritic chest pain Plan: 1. Please use Tylenol and/or Ibuprofen as needed for pain and fever management. 2. Get plenty of Rest. Take the medications as prescribed 3. Please follow up with your primary care provider, Dr Garcia for further evaluation and management as we discussed. 4. Return to the ED as needed as discussed. Definitive disposition and diagnosis as appropriate pending reevaluation and review of above. - Related Data Allergies Allergy/AdvReac Type Severity Reaction Status Date / Time No Known Allergies Allergy Verified 03/21/19 10:09 Home Meds: Home Meds . [No Known Home Meds] 04/22/17 [History] Past Medical History HEENT History: Reports: Other (See Below) Other HEENT History: enlarged salivary gland, "tonsil stones" Cardiovascular History: Reports: Other (See Below) Other Cardiovascular History: History of Tachycardia and high blood pressure in other "none in this ", treated by Dr. 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 RADAR SYSTEMS ENGINEER History: As above 6 months post delivery first child, had a surgery for ovarian cyst and 'tumor removed' Musculoskeletal History: Reports: Other (See Below) Other Musculoskeletal History: Degenerative Disc disease to back Neurological History: Reports: None Psychiatric History: Reports: None Endocrine/Metabolic History: Reports: None Hematologic History: Reports: None Immunologic History: Reports: None Oncologic (Cancer) History: Reports: None Dermatologic History: Reports: None - Past Surgical History Head Surgeries/Procedures: Reports: None HEENT Surgical History: Reports: None Cardiovascular Surgical History: Reports: None Respiratory Surgical History: Reports: None GI Surgical History: Reports: None Female Surgical History: Reports: Section Other Female Surgeries/Procedures: laparotomy with ovarian cyst removal and partial oophorectomy; benign ovarian tumor Endocrine Surgical History: Reports: None Neurological Surgical History: Reports: None Musculoskeletal Surgical History: Reports: None Oncologic Surgical History: Reports: None Dermatological Surgical History: Reports: None Social & Family History - Family History Family Medical History: Noncontributory - Tobacco Use Smoking Status *Q: Current Every Day Smoker Years of Tobacco use: 5 Packs/Tins Daily: 0.5 - Caffeine Use Caffeine Use: Reports: Coffee, Energy Drinks - Recreational Drug Use Recreational Drug Use: No ED ROS GENERAL - Review of Systems Review Of Systems: ROS reveals no pertinent complaints other than HPI. ED EXAM, GENERAL - Physical Exam Exam: See Below (See dictation) Course - Vital Signs Last Recorded V/S: Last Vital Signs Temp 97.9 F 03/21/19 10:07 Pulse 89 03/21/19 10:07 Resp 16 03/21/19 10:07 BP 132/86 03/21/19 10:07 Pulse Ox 99 03/21/19 10:07 - Orders/Labs/Meds Orders: Active Orders 24 hr Category Date Time Status EKG Documentation Completion [RC] STAT Care 03/21/19 10:02 Active Sodium Chloride 0.9% [Normal Saline] 1,000 ml Med 03/21/19 10:06 Active IV STAT Medication Orders Sodium Chloride (Normal Saline) 1,000 mls @ 999 mls/hr IV STAT ONE Stop: 03/21/19 11:06 Last Admin: 03/21/19 10:17 Dose: 999 mls/hr Labs: Laboratory Tests 03/21/19 03/21/19 Range/Units 10:10 10:10 WBC 8.21 (4.0-11.0) K/uL RBC 4.43 (4.30-5.90) M/uL Hgb 13.1 (12.0-16.0) g/dL Hct 39.2 (36.0-46.0) % MCV 88.5 (80.0-98.0) fL MCH 29.6 (27.0-32.0) pg MCHC 33.4 (31.0-37.0) g/dL RDW Std Deviation 43.7 (28.0-62.0) fl RDW Coeff of Carlos 13 (11.0-15.0) % Plt Count 334 (150-400) K/uL MPV 10.00 (7.40-12.00) fL Neut % (Auto) 66.9 (48.0-80.0) % Lymph % (Auto) 25.0 (16.0-40.0) % Licking % (Auto) 7.1 (0.0-15.0) % Eos % (Auto) 0.5 (0.0-7.0) % Baso % (Auto) 0.5 (0.0-1.5) % Neut # (Auto) 5.5 (1.4-5.7) K/uL Lymph # (Auto) 2.1 (0.6-2.4) K/uL L[place] # (Auto) 0.6 (0.0-0.8) K/uL Eos # (Auto) 0.0 (0.0-0.7) K/uL Baso # (Auto) 0.0 (0.0-0.1) K/uL Nucleated RBC % 0.0 /100WBC Nucleated RBCs # 0 K/uL Sodium 142 (136-145) mmol/L Potassium 4.1 (3.5-5.1) mmol/L Chloride 107 (98-107) mmol/L Carbon Dioxide 25.0 (21.0-32.0) mmol/L BUN 10 (7.0-18.0) mg/dL Creatinine 0.6 (0.6-1.0) mg/dL Est Cr Clr Drug Dosing 125.61 mL/min Estimated GFR (MDRD) > 60.0 ml/min Glucose 113 H (74-106) mg/dL Calcium 8.7 (8.5-10.1) mg/dL Total Bilirubin 0.2 (0.2-1.0) mg/dL AST 12 L (15-37) IU/L ALT 20 (14-63) IU/L Alkaline Phosphatase 57 (46-116) U/L Total Protein 7.2 (6.4-8.2) g/dL Albumin 3.9 (3.4-5.0) g/dL Globulin 3.3 (2.6-4.0) g/dL Albumin/Globulin Ratio 1.2 (0.9-1.6) Meds: Medications Generic Name Dose Route Start Last Admin Trade Name Freq PRN Reason Stop Dose Admin Sodium Chloride 1,000 mls @ 999 mls/hr 03/21/19 10:06 03/21/19 10:17 Normal Saline IV 03/21/19 11:06 999 mls/hr STAT ONE Administration Discontinued Medications Generic Name Dose Route Start Last Admin Trade Name Freq PRN Reason Stop Dose Admin Ketorolac Tromethamine 30 mg 03/21/19 10:51 Toradol IVPUSH 03/21/19 10:52 ONETIME ONE Methylprednisolone Sodium Succinate 125 mg 03/21/19 10:06 03/21/19 10:17 Solu-Medrol IVPUSH 03/21/19 10:07 125 mg ONETIME ONE Administration Departure - Departure Time of Disposition: 11:04 Disposition: Home, Self-Care 01 Clinical Impression: Pleuritic chest pain - Discharge Information Instructions: Nonspecific Chest Pain, [id number] Referrals: PCP,Unknown [Primary Care Provider] - Forms: ED Department Discharge Additional Instructions: The following information is given to patients seen in the emergency department who are being discharged to home. This information is to outline your options for follow-up care. We provide all patients seen in our emergency department with a follow-up referral. The need for follow-up, as well as the timing and circumstances, are variable depending upon the specifics of your emergency department visit. If you don't have a primary care physician on staff, we will provide you with a referral. We always advise you to contact your personal physician following an emergency department visit to inform them of the circumstance of the visit and for follow-up with them and/or the need for any referrals to a consulting specialist. The emergency department will also refer you to a specialist when appropriate. This referral assures that you have the opportunity for follow-up care with a specialist. All of these measure are taken in an effort to provide you with optimal care, which includes your follow-up. Under all circumstances we always encourage you to contact your private physician who remains a resource for coordinating your care. When calling for follow-up care, please make the office aware that this follow-up is from your recent emergency room visit. If for any reason you are refused follow-up, please contact the [facility] Emergency Department at and asked to speak to the emergency department charge nurse. [facility] [address] [place] [address] [id number] [address] [address] 1. Please use Tylenol and/or Ibuprofen as needed for pain and fever management. 2. Get plenty of Rest. Take the medications as prescribed 3. Please follow up with your primary care provider, Dr Garcia for further evaluation and management as we discussed.. 4. Return to the ED as needed as discussed. - My Orders Last 24 Hours: My Active Orders 03/21/19 10:02 EKG Documentation Completion [RC] STAT 03/21/19 10:06 Sodium Chloride 0.9% [Normal Saline] 1,000 ml IV STAT - Assessment/Plan Last 24 Hours: My Active Orders 03/21/19 10:02 EKG Documentation Completion [RC] STAT 03/21/19 10:06 Sodium Chloride 0.9% [Normal Saline] 1,000 ml IV STAT
[2019-03-21 10:41] LABS: CHLORIDE,CL 107 mmol/L (98-107); SODIUM,NA 142 mmol/L (136-145)
[2019-03-21] MEDS ORDERED: Ketorolac 30 MG/ML SDV IVPUSH ONE (10:51)
--- NOTE | 2019-03-21 10:53 | CR ---
INDICATION: Chest pain, dyspnea TECHNIQUE: Chest 2 views. COMPARISON: None FINDINGS: Cardiovascular and mediastinum: Heart size and vasculature are normal in caliber and appearance. Mediastinum is within normal limits. Lungs and pleural spaces: Lungs are clear. No sign of infiltrate or mass. No sign of pleural effusion. No pneumothorax. Bones and soft tissues: No significant findings. IMPRESSION: Unremarkable chest. Dictated by Matthew Teran MD @ Mar 21 2019 10:50AM Signed by Dr. Matthew Teran @ Mar 21 2019 10:51AM
[2019-03-21 11:17] VITALS: BP 109/77
== END 2019-03-21 11:24 | disposition home or self-care (01) ==
LOC: MW.ED 10:01
DX: R07.81 Pleurodynia (principal); F17.210 Nicotine dependence, cigarettes, uncomplicated
CPT/HCPCS: 36415; 71046; 80053; 85025; 93005; 96361; 96374; 96375; 99285; J1885; J2930; J7040; 99283

== ENCOUNTER 2021-06-14 06:40 | Day surgery (SDC) | payer BC ==
[2021-06-12 10:54] LABS: BLOOD UREA NITROGEN,BUN 8 mg/dL (7.0-18.0); CARBON DIOXIDE,CO2 25.6 mmol/L (21.0-32.0); CHLORIDE,CL 102 mmol/L (98-107); GLUCOSE RANDOM 93 mg/dL (74-106); POTASSIUM,K 3.8 mmol/L (3.5-5.1); SODIUM,NA 137 mmol/L (136-145)
[~2021-06-14 06:40] MED LIST changes: -Lactated Ringers 1,000 ML IV SCH; +Sodium Chloride 0.9% 10 ML SDV IV PRN; +ceFAZolin 2 GM in Premix Bag 1 BAG IV ONE
[2021-06-14] MEDS ORDERED: Metoclopramide 10 MG/2 ML SDV IVPUSH PRN (07:09)
[2021-06-14] MEDS ORDERED: Albuterol 0.083% 2.5 MG/3 ML Neb Soln NEB PRN (07:09)
[2021-06-14] MEDS ORDERED: HYDROmorphone 1 MG/ML Syringe IVPUSH PRN (07:09)
[2021-06-14] MEDS ORDERED: Ondansetron 4 MG/2 ML SDV IVPUSH PRN ×2 (07:09→12:43)
[2021-06-14] MEDS ORDERED: Naloxone 0.4 MG/ML Syringe IVPUSH PRN (07:09)
[2021-06-14] MEDS ORDERED: fentaNYL 100 MCG/2 ML SDV IVPUSH PRN (07:09)
--- NOTE | 2021-06-14 07:09 | PCM.PREANE ---
Preanesthetic Assessment - Procedure Proposed Procedure: Dx Lap, Total Lap Hyster, Left SO, Cysto - Anesthesia/Transfusion/Family Hx Anesthesia History: Prior Anesthesia Without Reaction Family History of Anesthesia Reaction: No Transfusion History: No Prior Transfusion(s) - Review of Systems General: No Symptoms Pulmonary: No Symptoms (Smokes 1/2 PPD) Cardiovascular: No Symptoms Gastrointestinal: No Symptoms Neurological: No Symptoms Other: Reports: None - Physical Assessment NPO Status Date: 06/13/21 NPO Status Time: 22:00 Height: 5 ft 4 in Weight: 63.503 kg ASA Class: 2 Mental Status: Alert & Oriented x3 Airway Class: Mallampati = 1 Dentition: Reports: Normal Dentition Thyro-Mental Finger Breadths: 3 Mouth Opening Finger Breadths: 3 ROM/Head Extension: Full Lungs: Clear to Auscultation, Normal Respiratory Effort Cardiovascular: Regular Rate, Regular Rhythm - Lab Values: Laboratory Last Values WBC 7.30 K/uL (4.0-11.0) 06/12/21 10:16 RBC 4.39 M/uL (4.30-5.90) 06/12/21 10:16 Hgb 13.1 g/dL (12.0-16.0) 06/12/21 10:16 Hct 38.3 % (36.0-46.0) 06/12/21 10:16 MCV 87.2 fL (80.0-98.0) 06/12/21 10:16 MCH 29.8 pg (27.0-32.0) 06/12/21 10:16 MCHC 34.2 g/dL (31.0-37.0) 06/12/21 10:16 RDW Std Deviation 42.2 fl (28.0-62.0) 06/12/21 10:16 RDW Coeff of Carlos 13 % (11.0-15.0) 06/12/21 10:16 Plt Count 297 K/uL (150-400) 06/12/21 10:16 MPV 10.10 fL (7.40-12.00) 06/12/21 10:16 Nucleated RBC % 0.0 /100WBC 06/12/21 10:16 Nucleated RBCs # 0 K/uL 06/12/21 10:16 Sodium 137 mmol/L (136-145) 06/12/21 10:16 Potassium 3.8 mmol/L (3.5-5.1) 06/12/21 10:16 Chloride 102 mmol/L (98-107) 06/12/21 10:16 Carbon Dioxide 25.6 mmol/L (21.0-32.0) 06/12/21 10:16 BUN 8 mg/dL (7.0-18.0) 06/12/21 10:16 Creatinine 0.6 mg/dL (0.6-1.0) 06/12/21 10:16 Est Cr Clr Drug Dosing 117.31 mL/min 06/12/21 10:16 Estimated GFR (MDRD) > 60.0 ml/min 06/12/21 10:16 Glucose 93 mg/dL (74-106) 06/12/21 10:16 Calcium 8.7 mg/dL (8.5-10.1) 06/12/21 10:16 HCG, Qual NEGATIVE (NEG) 06/12/21 10:16 Blood Type B POSITIVE 06/12/21 10:16 Antibody Screen NEGATIVE 06/12/21 10:16 - Allergies Allergies/Adverse Reactions: Allergies Allergy/AdvReac Type Severity Reaction Status Date / Time dust Allergy Sneezing/PATE Uncoded 06/08/21 09:56 - Acknowledgements Anesthesia Type Planned: General Anesthesia Pt an Appropriate Candidate for the Planned Anesthesia: Yes Alternatives and Risks of Anesthesia Discussed w Pt/Guardian: Yes Pt/Guardian Understands and Agrees with Anesthesia Plan: Yes PreAnesthesia Questionnaire HEENT History: Reports: Other (See Below) Other HEENT History: wears glasses Cardiovascular History: Reports: None Respiratory History: Reports: None Gastrointestinal History: Reports: None Genitourinary History: Reports: None 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: Musculoskeletal History: Reports: Other (See Below) Other Musculoskeletal History: generalized body aches Neurological History: Reports: None Psychiatric History: Reports: None Endocrine/Metabolic History: Reports: None Hematologic History: Reports: None Immunologic History: Reports: None Oncologic (Cancer) History: Reports: None Dermatologic History: Reports: None - Infectious Disease History Infectious Disease History: Reports: None - Past Surgical History Head Surgeries/Procedures: Reports: None HEENT Surgical History: Reports: None Cardiovascular Surgical History: Reports: None Respiratory Surgical History: Reports: None GI Surgical History: Reports: None Female Surgical History: Reports: Section, Other (See Below) Other Female Surgeries/Procedures: laparotomy with rt oophorectomy Endocrine Surgical History: Reports: None Neurological Surgical History: Reports: None Musculoskeletal Surgical History: Reports: None Oncologic Surgical History: Reports: None Dermatological Surgical History: Reports: Other (See Below) - SUBSTANCE USE Tobacco Use Status *Q: Current Every Day Tobacco User Tobacco Use Within Last Twelve Months: Cigarettes - HOME MEDS Home Medications: Home Meds Acetaminophen [Tylenol] 2 tab PO ASDIRECTED PRN 06/08/21 [History] Orphenadrine [Norflex] 100 mg PO BID PRN 06/08/21 [History] - CURRENT (IN HOUSE) MEDS Current Meds: Current Medications Lactated Ringer's (Ringers, Lactated) 1,000 mls @ 500 mls/hr IV BOLUS STEF Sodium Chloride (Sodium Chloride 0.9% 10 Ml Syringe) 10 ml FLUSH ASDIRECTED PRN PRN Reason: Keep Vein Open Sodium Chloride (Sodium Chloride 0.9% 2.5 Ml Syringe) 2.5 ml FLUSH ASDIRECTED PRN PRN Reason: Keep Vein Open Sodium Chloride (Sodium Chloride 0.9% 10 Ml Sdv) 10 ml IV ASDIRECTED PRN PRN Reason: IV Use Discontinued Medications Cefazolin Sodium/Dextrose 2 gm (/ Premix) 50 mls @ 100 mls/hr IV ONETIME ONE Stop: 06/12/21 09:44
[2021-06-14] MEDS ORDERED: Morphine 2 MG/ML SYRINGE IVPUSH PRN (07:15)
[2021-06-14] MEDS ORDERED: fentaNYL 100 MCG/2 ML SDV ONE (07:16)
[2021-06-14] MEDS ORDERED: Lidocaine 2% 5 ML SDV ONE (07:16)
[2021-06-14] MEDS ORDERED: Dexamethasone 4 MG/ML 5 ML MDV ONE (07:16)
[2021-06-14] MEDS ORDERED: Propofol 200 MG/20 ML SDV ONE (07:16)
[2021-06-14] MEDS ORDERED: Rocuronium Bromide 50 MG/5 ML Syringe ONE ×2 (07:16→08:52)
[2021-06-14] MEDS ORDERED: Sugammadex Sodium 200 MG/2 ML VIAL ONE (07:16)
[2021-06-14] MEDS ORDERED: Ondansetron 4 MG/2 ML SDV ONE (07:16)
[2021-06-14] MEDS ORDERED: Midazolam 1 MG/ML 2 ML SDV ONE (07:17)
[2021-06-14] MEDS ORDERED: Fluorescein 5 ML Vial ONE (07:36)
[2021-06-14] MEDS ORDERED: Octyl 2-Cyanoacrylate 1 Tube ONE (07:36)
[2021-06-14] MEDS: Lactated Ringers 1,000 ML IV SCH ×2 (07:51→12:43)
[2021-06-14] MEDS ORDERED: HYDROmorphone 2 MG/ML Syringe ONE (08:21)
[2021-06-14] MEDS ORDERED: Meperidine PF 25 MG/ML Syringe ONE (09:42)
[2021-06-14] MEDS ORDERED: Ketorolac 30 MG/ML SDV ONE (09:45)
--- NOTE | 2021-06-14 09:50 | PCM.POSTAN ---
POST ANESTHESIA ASSESSMENT - MENTAL STATUS Mental Status: Alert, Oriented - VITAL SIGNS Vital Signs: Last Vital Signs Temp 97.5 F 06/14/21 09:39 Pulse 111 H 06/14/21 09:39 Resp 12 06/14/21 09:39 BP 124/67 06/14/21 09:39 Pulse Ox 100 06/14/21 09:39 - RESPIRATORY Respiratory Status: Respiratory Rate WNL, Airway Patent, O2 Saturation Stable - CARDIOVASCULAR CV Status: Pulse Rate WNL, Blood Pressure Stable - GASTROINTESTINAL GI Status: No Symptoms - PAIN Pain Score: 4 - POST OP HYDRATION Hydration Status: Adequate & Stable
--- NOTE | 2021-06-14 09:55 | PCM48HPAN ---
Post Anesthesia Note - EVALUATION WITHIN 48HRS OF ANESTHETIC Vital Signs in Normal Range: Yes Patient Participated in Evaluation: Yes Respiratory Function Stable: Yes Airway Patent: Yes Cardiovascular Function Stable: Yes Hydration Status Stable: Yes Pain Control Satisfactory: Yes Nausea and Vomiting Control Satisfactory: Yes Mental Status Recovered: Yes Vital Signs: Last Vital Signs Temp 97.5 F 06/14/21 09:39 Pulse 98 06/14/21 09:44 Resp 14 06/14/21 09:44 BP 135/55 L 06/14/21 09:44 Pulse Ox 100 06/14/21 09:44 - COMMENTS/OBSERVATIONS Free Text/Narrative:: Pt doing well post-op. VSS. No apparent anesthetic complications. Dr. Dre Salmon
[2021-06-14] MEDS ORDERED: Sodium Chloride 0.9% 10 ML Syringe FLUSH PRN (12:43)
[2021-06-14] MEDS ORDERED: Acetaminophen/HYDROcodone 325-5 MG Tab PO PRN (12:43)
[2021-06-14] MEDS ORDERED: Sodium Chloride 0.9% 2.5 ML Syringe FLUSH PRN (12:43)
[2021-06-14] MEDS ORDERED: Morphine 4 MG/ML Syringe IVPUSH PRN (12:43)
[2021-06-14] MEDS ORDERED: Lactated Ringers 1,000 ML IV SCH (12:45)
[2021-06-14 15:44] VITALS: BP 114/58; PULSE 91
--- NOTE | 2021-06-15 02:01 | OR ---
SURGEON: Jun Mckay MD DATE OF PROCEDURE: 06/14/2021 PREOPERATIVE DIAGNOSES: Menometrorrhagia, pelvic pain. POSTOPERATIVE DIAGNOSES: Menometrorrhagia, pelvic pain. OPERATIONS PERFORMED: Multiple-puncture diagnostic laparoscopy, extensive lysis of adhesion, total laparoscopic hysterectomy, laparoscopic bilateral salpingectomy preserving both ovary, and cystoscopy. PRIMARY SURGEON: Jun Mckay MD TRACK OILER: OR tech. ANESTHESIA: General endotracheal intubation. ESTIMATED BLOOD LOSS: Less than 100 mL. COMPLICATIONS: None. FINDINGS: Pelvic adhesion from her previous sections and uterus is about 10-week size. INDICATIONS OF SURGERY: Stephen refer to the admit note. PROCEDURE IN DETAIL: The patient was brought to the OR, properly identified. After adequate level of anesthesia, the patient was placed in lithotomy position. Garcia catheter was placed in the bladder and the [employer] manipulator placed in the uterus for manipulation. Then, the operation shifted abdominally. A stab wound done beneath the umbilicus. The Veress needle was placed in the peritoneal cavity and that cavity insufflated with adequate amount of CO2 and then utilizing the Visiport technique, a 5 mm trocar was placed centrally. Next, a 10/12 trocar placed in the left iliac fossa under direct vision and there was adhesion between the omentum and the anterior abdominal wall. Using the Timmy Harmonic scalpel, this adhesion was lysed methodically and carefully until it totally is gone and the pelvis was exposed and free and obstructed view of the pelvis was obtained. Once we did that, a 5 mm trocar was placed in the right iliac fossa and then the operation started by identifying the landmark of the ligament. Using the Timmy Harmonic scalpel, the superior pedicle coagulated and transected, the tube was included with the specimen. The ovary preserved on both sides. Then, the round ligament was coagulated on both sides with Timmy Harmonic scalpel and then the anterior leaf of the broad ligament dissected downward medially with careful sharp and blunt dissection, and meticulously the bladder was dissected completely away from its attachment to the cervix and the lower uterine segment. At this time, then the uterine vessel was exposed on both sides and coagulated and transected with Timmy Harmonic scalpel; and then using the Timmy Harmonic scalpel, circular incision in the vaginal mucosa done around the tip of the manipulator detaching the cervix from its attachment to the vagina. Pneumoperitoneum re-established by placing vaginal pack in the vagina. Irrigation of the pelvis showed no oozing, no bleeding. We proceeded to close the vagina laparoscopically using 2-0 PDS interrupted, and while we were doing that, we asked Anesthesia personnel to give the patient fluorescein, and after closing the vagina and the patient taken off Trendelenburg, the abdomen was deflated. Cystoscopy performed. The bladder was intact. Both ureteric orifices were seen with the dye coming from both of them. Thus, the patency of both ureters verified. Satisfied with this procedure, the laparoscopic incisions were closed in layers. Instrument and sponge count was correct. The patient tolerated the procedure well, went to recovery room in stable general condition. JAKY / SILVINO /[id number]
--- NOTE | 2021-06-20 08:46 | PCM.OPNOTE ---
- General Post-Op/Procedure Note Date of Surgery/Procedure: 06/14/21 Operative Procedure(s): TLH,BilatSalpengectomy and cystoscopy. Pre Op Diagnosis: Bleeding Post-Op Diagnosis: Same Anesthesia Technique: General ET Tube Primary Surgeon: Jun Mckay EBL in mLs: 100 Complications: None
== END 2021-06-14 17:05 ==
LOC: MERGE 06:40 → MW.SDS 06:40 → MW.MS 09:33 → MW.SDS 17:05
PROVIDERS: ATTEND Obstetrics & Gynecology
DX: N92.1 Excessive and frequent menstruation with irregular cycle (principal); R10.2 Pelvic and perineal pain; K66.0 Peritoneal adhesions (postprocedural) (postinfection); F17.210 Nicotine dependence, cigarettes, uncomplicated; Z98.890 Other specified postprocedural states
CPT/HCPCS: 36415; 58571; 80048; 84703; 85027; 86850; 86900; 86901; 88307; A9270; J0131; J0690; J1100; J1170; J1885; J2250; J2704; J3010; J3490; J7030; J7120; J2405

== ENCOUNTER 2023-02-20 20:14 | Emergency (ER) | payer BC, MEDICAID ==
[2023-02-20] MEDS ORDERED: Sodium Chloride 0.9% 1,000 ML IV ONE (20:39)
[2023-02-20] MEDS ORDERED: LORazepam 2 MG/ML SDV IVPUSH ONE (20:39)
[2023-02-20] MEDS ORDERED: cefTRIAXone 2 GM in Sodium Chloride 0.9% 50 ML IV ONE (20:39)
[2023-02-20] MEDS ORDERED: HYDROmorphone 1 MG/ML Syringe IVPUSH ONE (20:39)
[2023-02-20] MEDS ORDERED: Sodium Chloride 0.9% 10 ML Syringe FLUSH PRN (20:39)
[2023-02-20] MEDS ORDERED: Sodium Chloride 0.9% 2.5 ML Syringe FLUSH PRN (20:39)
[2023-02-20] MEDS ORDERED: Ketorolac 30 MG/ML SDV IVPUSH ONE (20:39)
[2023-02-20] MEDS ORDERED: Lidocaine 2% 5 ML SDV INFILT ONE (20:46)
[2023-02-20 21:56] LABS: BLOOD UREA NITROGEN,BUN 13 mg/dL (7.0-18.0); CARBON DIOXIDE,CO2 26.7 mmol/L (21.0-32.0); CHLORIDE,CL 105 mmol/L (98-107); GLUCOSE RANDOM 88 mg/dL (74-106); POTASSIUM,K 3.6 mmol/L (3.5-5.1); SODIUM,NA 141 mmol/L (136-145)
[2023-02-20 21:58] LABS: ESTIMATED GFR 100 mL/min (>60)
[2023-02-21 02:24] VITALS: BP 128/95; PULSE 88
== END 2023-02-21 03:25 ==
LOC: MW.ED 20:14
DX: B00.4 Herpesviral encephalitis (principal); Z91.048 Other nonmedicinal substance allergy status
CPT/HCPCS: 36415; 62270; 70450; 80053; 81001; 82945; 83605; 84145; 84157; 85025; 85610; 86140; 86592; 86788; 86789; 87040; 87070; 87205; 89050; 96365; 96367; 96375; 99291; 99292; J0133; J0696; J1170; J1885; J2060; J3490; J7030; J7050; 87255; 87529

== ENCOUNTER 2023-05-23 11:29 | Emergency (ER) | payer MEDICAID ==
[2023-05-23] MEDS ORDERED: risperiDONE 1 MG Tab PO SCH (12:30)
[2023-05-23] MEDS ORDERED: Benztropine 1 MG Tab PO SCH (12:30)
[2023-05-23 12:43] LABS: BASOPHILS ABSOLUTE AUTO 0.1 K/uL (0.0-0.1); BASOPHILS PERCENT AUTO 0.7 % (0.0-1.5); EOSINOPHILS ABSOLUTE AUTO 0.1 K/uL (0.0-0.7); EOSINOPHILS PERCENT AUTO 0.8 % (0.0-7.0); HEMATOCRIT 40.3 % (36.0-46.0); HEMOGLOBIN 13.6 g/dL (12.0-16.0); LYMPHOCYTES ABSOLUTE AUTO 1.9 K/uL (0.6-2.4); LYMPHOCYTES PERCENT AUTO 24.9 % (16.0-40.0); MEAN CORPUSCULAR HGB CONC 33.7 g/dL (31.0-37.0); MEAN CORPUSCULAR VOLUME 88.8 fL (80.0-98.0); MONOCYTES ABSOLUTE AUTO 0.3 K/uL (0.0-0.8); MONOCYTES PERCENT AUTO 4.6 % (0.0-15.0); NEUTROPHILS ABSOLUTE AUTO 5.1 K/uL (1.4-5.7); NRBC ABSOLUTE 0 K/uL; PLATELET COUNT,PLT 343 K/uL (150-400); RED BLOOD CELL COUNT 4.54 M/uL (4.30-5.90); WHITE BLOOD CELL COUNT,WBC 7.42 K/uL (4.0-11.0)
[2023-05-23] MEDS: LORazepam 1 MG Tab PO SCH ×2 (12:45→22:08)
[2023-05-23 12:53] LABS: AMPHETAMINES SCREEN, URINE PRESUMPTIVE POSITIVE (CUTOFF=500); BARBITURATE SCREEN,URINE NEGATIVE (CUTOFF=200); BENZODIAZEPINES SCREEN,URINE NEGATIVE (CUTOFF=150); BUPRENORPHINE SCREEN,URINE NEGATIVE (CUTOFF=10); METHADONE SCREEN, URINE NEGATIVE (CUTOFF=200); METHAMPHETAMINES SCREEN, URINE NEGATIVE (CUTOFF=500); OXYCODONE SCREEN,URINE NEGATIVE (CUT0FF=100); PCP SCREEN,URINE NEGATIVE (CUTOFF=25); PROPOXYPHENE SCREEN,URINE NEGATIVE (CUTOFF=300); THC SCREEN,URINE 20 NG/ML PRESUMPTIVE POSITIVE (CUTOFF=50)
[2023-05-23 13:10] LABS: A/G RATIO 1.1 (0.9-1.6); ALANINE AMINOTRANSFERASE,ALT 19 IU/L (14-63); ALBUMIN 3.5 g/dL (3.4-5.0); ALKALINE PHOSPHATASE 49 U/L (46-116); ASPARTATE AMNIOTRANSFERASE,AST 14 IU/L (15-37); BILIRUBIN TOTAL 0.3 mg/dL (0.2-1.0); BLOOD UREA NITROGEN,BUN 6 mg/dL (7.0-18.0); CALCIUM 8.6 mg/dL (8.5-10.1); CARBON DIOXIDE,CO2 28.8 mmol/L (21.0-32.0); CHLORIDE,CL 106 mmol/L (98-107); CREATININE 0.6 mg/dL (0.6-1.0); EST CRCL DRUG DOSING (CG) 107.58 mL/min; GLUCOSE RANDOM 100 mg/dL (74-106); POTASSIUM,K 3.9 mmol/L (3.5-5.1); PROTEIN TOTAL,TP 6.6 g/dL (6.4-8.2); SODIUM,NA 142 mmol/L (136-145); TSH ULTRASENSITIVE 0.48 uIU/mL (0.36-3.74)
[2023-05-23 13:14] LABS: ESTIMATED GFR 121 mL/min (>60); ETHANOL BLOOD MEDICAL < 3.0 mg/dL
[2023-05-23 21:31] VITALS: BP 99/65; PULSE 75
== END 2023-05-23 22:19 ==
LOC: MW.ED 11:29
DX: R45.851 Suicidal ideations (principal); F17.210 Nicotine dependence, cigarettes, uncomplicated; Z91.048 Other nonmedicinal substance allergy status; Z98.890 Other specified postprocedural states
CPT/HCPCS: 36415; 80053; 80305; 80307; 81025; 84443; 85025; 99285; A9270; 99284

== ENCOUNTER 2023-12-09 22:17 | Emergency (ER) | payer MEDICAID ==
[2023-12-09] MEDS: Ondansetron 4 MG/2 ML SDV IVPUSH ONE (22:57)
[2023-12-09] MEDS: Sodium Chloride 0.9% 1,000 ML IV ONE (22:57)
[2023-12-09] MEDS: Morphine 4 MG/ML Syringe IVPUSH ONE (22:57)
[2023-12-09] MEDS: Clindamycin Phosphate in D5W 600 MG in Premix Bag 1 BAG IV ONE (22:57)
[2023-12-09] MEDS: Sodium Chloride 0.9% 10 ML Syringe FLUSH PRN (22:58)
[2023-12-09] MEDS: Sodium Chloride 0.9% 2.5 ML Syringe FLUSH PRN (22:58)
[2023-12-09 23:32] LABS: BASOPHILS ABSOLUTE AUTO 0.08 K/uL (0.00-0.20); BASOPHILS PERCENT AUTO 0.7 % (0.0-1.0); EOSINOPHILS ABSOLUTE AUTO 0.52 K/uL (0.00-0.45); EOSINOPHILS PERCENT AUTO 4.8 % (0.0-6.0); HEMATOCRIT 33.8 % (37.0-47.0); HEMOGLOBIN 11.6 g/dL (12.0-16.0); IMMATURE GRAN ABSOLUTE AUTO 0.02 K/uL (0.00-0.05); IMMATURE GRAN PERCENT AUTO 0.2 % (0.0-0.4); LYMPHOCYTES ABSOLUTE AUTO 3.47 K/uL (1.00-4.80); LYMPHOCYTES PERCENT AUTO 32.3 % (24.0-44.0); MEAN CORPUSCULAR HEMOGLOBIN 30.2 pg (28.0-32.0); MEAN CORPUSCULAR HGB CONC 34.3 g/dL (32.0-36.0); MEAN PLATELET VOLUME 9.4 fL (9.4-12.3); MONOCYTES ABSOLUTE AUTO 0.81 K/uL (0.00-0.80); MONOCYTES PERCENT AUTO 7.5 % (0.0-8.0); NEUTROPHILS ABSOLUTE AUTO 5.84 K/uL (1.80-7.70); NEUTROPHILS PERCENT AUTO 54.5 % (41.0-71.0); PLATELET COUNT,PLT 303 K/uL (150-400); RED BLOOD CELL COUNT 3.84 M/uL (4.10-5.30); WHITE BLOOD CELL COUNT,WBC 10.74 K/uL (3.9-11.3)
[2023-12-09 23:56] LABS: A/G RATIO 1.2 (0.9-1.6); ALANINE AMINOTRANSFERASE,ALT 16 IU/L (14-63); ALBUMIN 3.6 g/dL (3.4-5.0); ALKALINE PHOSPHATASE 55 U/L (46-116); ASPARTATE AMNIOTRANSFERASE,AST 10 IU/L (15-37); BILIRUBIN TOTAL 0.3 mg/dL (0.2-1.0); BLOOD UREA NITROGEN,BUN 14 mg/dL (7.0-18.0); CALCIUM 8.4 mg/dL (8.5-10.1); CARBON DIOXIDE,CO2 26.2 mmol/L (21.0-32.0); CHLORIDE,CL 104 mmol/L (98-107); CREATININE 0.7 mg/dL (0.6-1.0); GLUCOSE RANDOM 96 mg/dL (74-106); POTASSIUM,K 3.8 mmol/L (3.5-5.1); PROTEIN TOTAL,TP 6.6 g/dL (6.4-8.2); SODIUM,NA 141 mmol/L (136-145)
[2023-12-09 23:58] LABS: ESTIMATED GFR 117 mL/min (>60)
[2023-12-10 00:24] VITALS: BP 125/61; PULSE 68
== END 2023-12-10 00:23 | disposition home or self-care (01) ==
LOC: MW.ED 22:17
DX: K04.7 Periapical abscess without sinus (principal); Z90.710 Acquired absence of both cervix and uterus; Z91.048 Other nonmedicinal substance allergy status
CPT/HCPCS: 36415; 80053; 84703; 85025; 96365; 96375; 99283; J0736; J2270; J2405; J3490; J7030; 99284

== ENCOUNTER 2024-09-21 09:34 | Emergency (ER) | payer SELFPAY ==
[2024-09-21 11:54] VITALS: BP 129/76; PULSE 83
== END 2024-09-21 11:54 | disposition home or self-care (01) ==
LOC: MW.ED 09:34
DX: M54.16 Radiculopathy, lumbar region (principal); M53.3 Sacrococcygeal disorders, not elsewhere classified; Z90.710 Acquired absence of both cervix and uterus; Z88.8 Allergy status to other drugs, medicaments and biological substances; Z91.048 Other nonmedicinal substance allergy status; Z75.8 Other problems related to medical facilities and other health care
CPT/HCPCS: 72100; 72100-26; 72220; 72220-26; 73521; 73521-26; 99283; 99284

== ENCOUNTER 2025-05-28 13:42 | Emergency (ER) | payer SELFPAY ==
[2025-05-28 13:49] VITALS: BP 146/82
[2025-05-28 15:26] VITALS: PULSE 80
== END 2025-05-28 15:26 | disposition home or self-care (01) ==
LOC: MW.ED 13:42
DX: J06.9 Acute upper respiratory infection, unspecified (principal); J45.909 Unspecified asthma, uncomplicated; Z90.710 Acquired absence of both cervix and uterus; Z79.899 Other long term (current) drug therapy; Z75.3 Unavailability and inaccessibility of health-care facilities
CPT/HCPCS: 71046; 96374; 99285; A9270; J1100; J7620; 99283

== ENCOUNTER 2025-09-28 20:09 | Emergency (ER) | payer SELFPAY ==
[2025-09-28] MEDS ORDERED: Sodium Chloride 0.9% 2.5 ML Syringe FLUSH PRN (20:13)
[2025-09-28] MEDS ORDERED: Sodium Chloride 0.9% 10 ML Syringe FLUSH PRN (20:13)
[2025-09-28 20:32] LABS: BASOPHILS ABSOLUTE AUTO 0.04 K/uL (0.00-0.20); BASOPHILS PERCENT AUTO 0.5 % (0.0-1.0); EOSINOPHILS ABSOLUTE AUTO 0.37 K/uL (0.00-0.45); EOSINOPHILS PERCENT AUTO 4.2 % (0.0-6.0); IMMATURE GRAN ABSOLUTE AUTO 0.02 K/uL (0.00-0.05); IMMATURE GRAN PERCENT AUTO 0.2 % (0.0-0.4); LYMPHOCYTES ABSOLUTE AUTO 2.72 K/uL (1.00-4.80); LYMPHOCYTES PERCENT AUTO 30.7 % (24.0-44.0); MEAN PLATELET VOLUME 9.3 fL (9.4-12.3); MONOCYTES ABSOLUTE AUTO 0.62 K/uL (0.00-0.80); MONOCYTES PERCENT AUTO 7.0 % (0.0-8.0); NEUTROPHILS ABSOLUTE AUTO 5.08 K/uL (1.80-7.70); NEUTROPHILS PERCENT AUTO 57.4 % (41.0-71.0); NRBC ABSOLUTE 0.00 K/uL (0.00-0.02); NRBC PERCENT 0.0 /100WBC (0.0-0.2); PLATELET COUNT,PLT 345 K/uL (150-400); RED BLOOD CELL COUNT 4.44 M/uL (4.10-5.30); WHITE BLOOD CELL COUNT,WBC 8.85 K/uL (3.9-11.3)
[2025-09-28] MEDS: droPERidol 2.5 MG/ML SDV IVPUSH ONE (20:37)
[2025-09-28 20:38] LABS: APPEARANCE,URINE SLT CLOUDY; GLUCOSE,URINE NEGATIVE (NEGATIVE); OCCULT BLOOD,URINE NEGATIVE (NEGATIVE)
[2025-09-28] MEDS: Ketorolac 30 MG/ML SDV IVPUSH ONE (20:52)
[2025-09-28 21:07] LABS: A/G RATIO 1.2 (0.9-1.6); ALANINE AMINOTRANSFERASE,ALT 18.0 IU/L (14-63); ASPARTATE AMNIOTRANSFERASE,AST 11.0 IU/L (15-37); BILIRUBIN TOTAL 0.3 mg/dL (0.2-1.0); BLOOD UREA NITROGEN,BUN 10.0 mg/dL (7.0-18.0); CARBON DIOXIDE,CO2 27.4 mmol/L (21.0-32.0); CHLORIDE,CL 101.0 mmol/L (98-107); CREATININE 0.7 mg/dL (0.6-1.0); EST CRCL DRUG DOSING (CG) 100.94 mL/min; GLUCOSE RANDOM 90.0 mg/dL (74-106); POTASSIUM,K 3.7 mmol/L (3.5-5.1); PROTEIN TOTAL,TP 7.7 g/dL (6.4-8.2); SODIUM,NA 137.0 mmol/L (136-145)
[2025-09-28 21:10] LABS: ESTIMATED GFR 116.0 mL/min (>60)
[2025-09-28 21:12] LABS: AMPHETAMINES SCREEN, URINE PRESUMPTIVE POSITIVE (CUTOFF=500); BUPRENORPHINE SCREEN,URINE NEGATIVE (CUTOFF=10); METHADONE SCREEN, URINE NEGATIVE (CUTOFF=200); METHAMPHETAMINES SCREEN, URINE NEGATIVE (CUTOFF=500); OXYCODONE SCREEN,URINE NEGATIVE (CUT0FF=100); PCP SCREEN,URINE NEGATIVE (CUTOFF=25); THC SCREEN,URINE 20 NG/ML PRESUMPTIVE POSITIVE (CUTOFF=50)
[2025-09-28 21:53] VITALS: BP 128/82; PULSE 96
== END 2025-09-28 21:52 | disposition home or self-care (01) ==
LOC: MW.ED 20:09
DX: K59.00 Constipation, unspecified (principal); K62.5 Hemorrhage of anus and rectum; K64.9 Unspecified hemorrhoids; F14.90 Cocaine use, unspecified, uncomplicated; F11.90 Opioid use, unspecified, uncomplicated; F15.90 Other stimulant use, unspecified, uncomplicated; F12.90 Cannabis use, unspecified, uncomplicated; F17.290 Nicotine dependence, other tobacco product, uncomplicated; Z90.710 Acquired absence of both cervix and uterus; Z88.8 Allergy status to other drugs, medicaments and biological substances; Z91.048 Other nonmedicinal substance allergy status; Z79.899 Other long term (current) drug therapy
CPT/HCPCS: 36415; 74018; 80053; 80305; 81003; 83690; 85025; 96361; 96374; 96375; 99284; A9270; J1790; J1885; J7030